=== PATIENT | male | born 1995 | race Caucasian/White ===

== ENCOUNTER 2019-07-25 13:20 | Emergency (ER) | payer MEDICAID ==
[~2019-07-25] VITALS: Ht 185.4 cm; Wt 99.8 kg
[2019-07-25 13:55] VITALS: BP 121/70
--- NOTE | 2019-07-25 14:02 | Emergency Room Report ---
History of Present Illness General Chief Complaint: Sore Throat Source: Patient Present Illness HPI 24-year-old male presents to emergency room with 1 week of sore throat and green productive sputum cough. Associated with subjective fevers, nasal congestion, nausea, overall malaise. Patient did not get influenza vaccination this year. Patient denies recent travel. Patient has been using over-the- counter Mucinex, DayQuil, NyQuil with no improvement. Allergies: Coded Allergies: PENICILLINS (Verified Allergy, Severe, Anaphylaxis, 07/25/19) Nursing Documentation-[facility] Past Medical History: No Stated History Review of Systems Constitutional: Reports: chills, fever, malaise ENT: Reports: nose congestion, throat pain Respiratory: Reports: cough; Denies: shortness of breath Cardiovascular: Denies: chest pain, palpitations Gastrointestinal: Denies: diarrhea, vomiting Genitourinary: Denies: hematuria, pain Musculoskeletal: Denies: joint swelling Skin: Denies: rash, lesions Neurological: Denies: headache, dizziness Physical Exam Vital Signs Date Time Temp Pulse Resp B/P (MAP) Pulse Ox O2 Delivery O2 Flow Rate FiO2 07/25/19 13:30 98.2 81 19 121/70 (87) 96 Room Air Sp02 EP Interpretation: reviewed General Appearance: well appearing, no apparent distress, non-toxic Head: normocephalic, atraumatic Eyes: bilateral eye normal inspection ENT: hearing grossly normal, EOM grossly intact, TMs + canals normal, uvula midline, moist mucus membranes, nasal congestion, pharyngeal erythema Neck: supple Respiratory: lungs clear, normal breath sounds, no rhonchi, no respiratory distress, no retraction, no wheezing, speaking full sentences Cardiovascular #1: regular rate, rhythm, normal capillary refill Cardiovascular #2: 2+ radial (R), 2+ radial (L) Gastrointestinal: soft, non-distended Rectal: deferred Musculoskeletal: moves extm spontaneously, no lower extremity edema Neurologic: grossly normal Psychiatric: mood/affect normal Skin: warm/dry, normal turgor Medical Decision Making Diagnostic Impression: Primary Impression: Sore throat Additional Impression: Cough ER Course 24-year-old male presents to emergency room with sore throat, cough productive green sputum, developed malaise, subjective fevers, did not receive influenza vaccination, using outpatient treatment without improvement Exam found to have erythema posterior pharynx, uvula midline, no stridor, no wheezing no rhonchi no rales, Will perform chest x-ray symptoms for 1 week duration, will perform influenza testing and treat accordingly. Procedure Result INFLUENZA A ANTIGEN Final INFLUENZAE A RESULT NEGATIVE REF RANGE: NEGATIVE INFLUENZA B ANTIGEN Final INFLUENZAE B RESULT NEGATIVE REF RANGE: NEGATIVE Chest X-Ray Diagnostic Results Chest X-Ray Diagnostic Results : Chest X-Ray Ordered: Yes # of Views/Limited/Complete: 2 View Indication: Shortness of Breath Interpretation: no consolidation, no effusion, no pneumothorax, no acute cardiopulmonary disease Impression: No acute disease Last Vital Signs Date Time Temp Pulse Resp B/P (MAP) Pulse Ox O2 Delivery O2 Flow Rate FiO2 07/25/19 13:55 98.2 84 19 121/70 96 Room Air Disposition: HOME, SELF-CARE Condition: Stable Scripts Promethazine Hcl (PROMETHAZINE HCL*) 6.25 Mg/5 Ml Syrup 5 ML ORAL Q8H for 5 Days, #120 ML 0 Refills Prov: Brady Bejarano M.D. 07/25/19 Oxymetazoline HCl (Afrin) 15 Ml [place] 2 SPRAY NASAL TWICE A DAY for 3 Days, #18 SPRAY Prov: Brady Bejarano M.D. 07/25/19 Referrals: NON PHYSICIAN (PCP) Patient Instructions: Cough, Adult, Sore Throat Brady Bejarano M.D. Jul 25, 2019 14:02
--- NOTE | 2019-07-25 14:42 | Diagnostic Imaging Report ---
Indication: Cough Technique: 2 views of the chest Comparison: None Findings: Lungs and pleural spaces are clear. The heart size is normal. The bones are unremarkable. No significant interim change. Impression: Negative
[2019-07-25] MEDS ORDERED: PROMETHAZI6.25 MG/1 ORAL (14:47)
[2019-07-25] MEDS ORDERED: AFRIN NASAL SPR30 ML NASAL (14:47)
[2019-07-25 14:54] VITALS: BP 118/74
== END 2019-07-25 14:55 | disposition home or self-care (01) ==
LOC: EMR 13:55
DX: R07.0 Pain in throat (principal); R05 Cough; Z88.0 Allergy status to penicillin
CPT/HCPCS: 71046; 86710; Z7502; 99283